=== PATIENT | female | born 1975 | race Caucasian/White ===

== ENCOUNTER → 2024-03-09 13:24 | Outpatient (REF) | payer OTHER, SELFPAY | LOC: WDC 13:24 | PROVIDERS: ATTENDING PHYSICIAN Obstetrics & Gynecology; FAMILY PHYSICIAN Family Medicine | DX: Z12.31 Encounter for screening mammogram for malignant neoplasm of breast (principal) | CPT/HCPCS: 77063; 77067 ==

== ENCOUNTER → 2024-05-07 09:47 | Outpatient (REF) | payer OTHER, SELFPAY | LOC: WDC 09:47 | PROVIDERS: ATTENDING PHYSICIAN Obstetrics & Gynecology; FAMILY PHYSICIAN Family Medicine | DX: R92.2 Inconclusive mammogram (principal) | CPT/HCPCS: 76641 ==

== ENCOUNTER 2024-06-02 09:40 | Emergency (ER) | payer OTHER, SELFPAY ==
[2024-06-02 09:46] VITALS: BP 142/94
[2024-06-02 10:12] LABS: % Basophils 1.3 % (0-2); % Eosinophils 5.2 % (0-6); % Immature Granulocytes 0.2 % (0-0.5); % Lymphocytes 25.3 % (20.5-51.1); % Monocytes 4.6 % (1.7-9.3); % Neutrophils 63.4 % (42.2-75.2); Absolute Basophils 0.1 10^3/uL (0-0.2); Absolute Eosinophils 0.3 10^3/uL (0-0.7); Absolute Lymphocytes 1.2 10^3/uL (1.2-3.4); Absolute Monocytes 0.2 10^3/uL (0.1-0.6); Hematocrit 41.7 % (37.0-47.0); Hemoglobin 14.3 g/dL (12.0-16.0); Mean Corp Hgb Conc. 34.3 g/dL (33.0-37.0); Mean Corpuscular Hgb 30.2 pg (27.0-31.0); Mean Corpuscular Volume 88.2 fL (81.0-99.0); Mean Platelet Volume 9.4 fL (7.4-10.4); Nucleated Red Blood Cells % 0 %; Platelet Count 251 10^3/uL (130-400); Red Blood Cell Count 4.73 10^6/uL (4.20-5.40); Red Cell Dist. Width 12.4 % (11.5-14.5); White Blood Cell Count 4.8 10^3/uL (4.8-10.8)
[2024-06-02 10:24] LABS: ALT (SGPT) 18 U/L (0-35); AST (SGOT) 23 U/L (14-36); Albumin 4.8 g/dl (3.5-5.0); Alkaline Phosphatase 45 U/L (38-126); Blood Urea Nitrogen 15 mg/dl (7-17); Calcium 9.6 mg/dl (8.4-10.2); Carbon Dioxide 29 mmol/L (22-30); Chloride 102 mmol/L (98-107); Glucose 96 mg/dl (70-99); Lipase 144 U/L (23-300); Potassium 4.4 mmol/L (3.5-5.1); Sodium 140 mmol/L (135-145); Total Protein 7.4 g/dl (6.3-8.2); eGFR > 60.00
[2024-06-02 10:36] LABS: Troponin I < 0.012 ng/ml
--- NOTE | 2024-06-02 11:33 | ED.GENMED ---
History of Present Illness
General
Chief Complaint: Abdominal Symptoms
Source: patient
Time Seen by Provider: 06/02/24 11:06
History of Present Illness
History of Present Illness:
48-year-old female with past medical history of GERD and previous kidney stone presenting to the emergency department for evaluation of epigastric abdominal spasms that started yesterday describing the pain to be a short burst of discomfort lasting
for a few seconds and then resolving. Patient noticed that she was also belching a little bit more frequently. Today patient endorsed a frontal headache, no nausea, no vomiting and no visual disturbances. She did not take anything for her
symptoms yesterday or today. No other concerns presently.
Past History
Past History
ED Past Medical History: GERD and Other (Kidney stones)
ED Past Surgical History: and Other
Social History
Tobacco: Non-smoker
Alcohol: Occasional
Drug: None
Personal:
Living: with family
Employment: Employed
Family History
Family History: Other
Review of Systems
Review of Systems
All Other Systems: ROS reviewed and negative except as documented in HPI and ROS
Phy Exam
Physical Exam
Physical Exam:
GENERAL: Alert , in no apparent distress
EYE: clear conjunctiva b/l
HEAD: NCAT
ENT: mmm.
CARDIAC: Regular rate and rhythm .
LUNGS: Clear breath sounds bilaterally, no acute respiratory distress, no wheezes/rales/rhonchi
ABDOMEN: Soft, without focal tenderness, no r/g, no cvat, negative Carpenter sign, no tenderness at McBurney's point
NEUROLOGICAL: Alert and oriented
SKIN: Warm and dry, skin intact.
MUSCULOSKELETAL: well perfused.
PSYCH: Normal and appropriate interaction.
Scores
Heart Failure Risk
Heart Failure Risk Score: Not Applicable
Heart Score for Chest Pain Patients
STEMI patient?: Not applicable
Withdrawal Assessment of Alcohol
Withdrawal Assessment Completed?: Not applicable
Course
Orders/Labs/Results
Orders:
Orders
06/02/24 09:43
Electrocardiogram (*1) Urgent
Reason for Study: Chest Pain
EKG- Treatment ONCE
06/02/24 10:04
Complete Blood Count/With Diff Urgent
Comprehensive Metabolic Panel Urgent
Lipase Urgent
Troponin I Urgent
06/02/24 11:22
Ibuprofen [Motrin] 600 mg PO NOW STA
Mag Hydrox/Al Hydrox/Simeth [Maalox] 30 ml Phenobarb/Hyoscy/Atropine/Scop [] 10 ml Viscous Lidocaine 2% [Xylocaine Viscous Cup] 10 ml PO NOW
06/02/24 11:38
Phenobarb/Hyoscy/Atropine/Scop [] 10 ml .ROUTE .STK-MED ONE
06/02/24 11:39
Mag Hydrox/Al Hydrox/Simeth [Maalox] 30 ml .ROUTE .STK-MED ONE
Viscous Lidocaine 2% [Xylocaine Viscous Cup] 15 ml .ROUTE .STK-MED ONE
06/02/24 10:04
06/02/24 10:04
Vital Signs
Initial and Last Documented VS:
Initial Vital Signs
Temp Pulse Resp BP Pulse Ox
98.1 F 66 16 142/94 100
06/02/24 09:46 06/02/24 09:46 06/02/24 09:46 06/02/24 09:46 06/02/24 09:46
Last Documented Vital Signs
Temp Pulse Resp BP Pulse Ox
98.3 F 54 16 117/76 100
06/02/24 11:45 06/02/24 11:45 06/02/24 11:45 06/02/24 11:45 06/02/24 11:45
MDM/Problems Addressed
Differential Diagnosis Includes:
GERD, gastritis, duodenitis, symptomatic cholelithiasis/cholecystitis, pancreatitis, tension headache, no concern for intracranial bleeding
MDM/Problems Addressed:
48-year-old female presenting to the emergency department for evaluation of intermittent abdominal spasm lasting a few seconds and then resolving. No other GI related symptoms. Secondary concern of a mild frontal headache today. Did not take
anything for symptoms prior to arrival. Abdominal exam reassuring. Labs initiated in triage are all unremarkable. Patient had a nonischemic EKG and negative troponin. Will treat with GI cocktail and Motrin. Reassessment following
Chronic conditions affecting care: Other (GERD)
*Pulse Oximetry
Patient hypoxic: no
*EKG
Interpreted by ED Provider?: Yes
Comparison EKG: no changes
Heart Rate: 57
Rate: bradycardiac
Rhythm: sinus
[place]: normal axis
Ischemia: no ischemia
*Voice Engineer Interpretation
Rate: bradycardiac
Rhythm: sinus
*Critical Care Note
Total Time (30-74mins, 75-104mins- exclusive of procedures): Not Applicable
Patient Management
Escalation/DeEscalation of care consider admission/obs:
Patient reporting significant improvement of symptoms. Feels comfortable being discharged home. She is aware of return precautions to the emergency department and will follow-up with her primary care provider.
ED Attending Note
-
Portions of this chart may have been created with voice recognition software.� Occasional wrong word or��sound alike� substitutions may have occurred due to the inherent limitations of voice recognition software.
Discharge Plan
Departure
Patient Disposition: Home (Routine Discharge)
Date of Disposition: 06/02/24
Time of Disposition: 13:38
Patient with high blood pressure during this ER visit?: Yes
Discharge Problem:
Abdominal pain, Headache
Instructions: Abdominal Pain
Prescriptions:
No Action
dicyclomine 10 MG capsule
10 mg PO QIDPRN PRN (Reason: severe abdominal pain) Qty: 15 0RF
Referrals:
Lit Dash MD [Family Provider] -
Interventions
Interventions:
*Risk Screen - Suicide Last Done: 06/02/24 09:46
*General Assessment Last Done: 06/02/24 09:46
*Neglect/Abuse Screening Last Done: 06/02/24 09:46
ED- Fall Risk Assessment Last Done: 06/02/24 11:49
*ED COVID-19 Vaccine History Last Done: 06/02/24 09:46
VN-Jmhcip-Wutgonyado Assessment Last Done: 06/02/24 09:41
Discharge Date and Time
Print Language: UPPER SORBIAN
[2024-06-02] MEDS: MOTRIN 600 MG PO (11:41)
[2024-06-02] MEDS: MAALOX 50 PO (11:42)
[2024-06-02 11:45] VITALS: BP 117/76
[2024-06-02 11:48] VITALS: BMI 21.6
[2024-06-02 13:50] VITALS: BP 129/64
== END 2024-06-02 13:50 | disposition home or self-care (01) ==
LOC: EMR 09:40
PROVIDERS: Emergency Medicine; EMERGENCY PHYSICIAN Emergency Medicine; FAMILY PHYSICIAN Family Medicine
DX: R51.9 Headache, unspecified (principal); R10.13 Epigastric pain; M62.838 Other muscle spasm; R03.0 Elevated blood-pressure reading, without diagnosis of hypertension; K21.9 Gastro-esophageal reflux disease without esophagitis; Z87.442 Personal history of urinary calculi; Z88.5 Allergy status to narcotic agent
CPT/HCPCS: 99283; 80053; 83690; 84484; 85025; 93005

== ENCOUNTER 2024-06-28 09:13 | Emergency (ER) | payer OTHER, SELFPAY ==
[2024-06-28] VITALS (7 sets, daily range): BP systolic 90–127; BP diastolic 53–79; BMI 20.6
[2024-06-28] MEDS: TORADOL 15 MG IV (10:15)
[2024-06-28] MEDS: OMNIPAQUE 50 ML PO (10:15)
[2024-06-28 10:18] LABS: % Basophils 0.6 % (0-2); % Eosinophils 1.8 % (0-6); % Immature Granulocytes 0.3 % (0-0.5); % Lymphocytes 11.4 % (20.5-51.1); % Monocytes 6.3 % (1.7-9.3); % Neutrophils 79.6 % (42.2-75.2); Absolute Basophils 0.1 10^3/uL (0-0.2); Absolute Eosinophils 0.2 10^3/uL (0-0.7); Absolute Lymphocytes 1.2 10^3/uL (1.2-3.4); Absolute Monocytes 0.6 10^3/uL (0.1-0.6); Hematocrit 42.1 % (37.0-47.0); Hemoglobin 14.4 g/dL (12.0-16.0); Mean Corp Hgb Conc. 34.2 g/dL (33.0-37.0); Mean Corpuscular Hgb 30.4 pg (27.0-31.0); Mean Platelet Volume 9.6 fL (7.4-10.4); Nucleated Red Blood Cells % 0 %; Platelet Count 262 10^3/uL (130-400); Red Blood Cell Count 4.73 10^6/uL (4.20-5.40); Red Cell Dist. Width 12.1 % (11.5-14.5); White Blood Cell Count 10.1 10^3/uL (4.8-10.8)
[2024-06-28 10:22] LABS: Urine Albumin Negative (Neg - Trace); Urine Bilirubin Negative (Negative); Urine Character Clear (Clear); Urine Color Yellow; Urine Glucose Negative (Negative); Urine Ketone Negative (Negative); Urine Leukocyte Negative (Negative); Urine Nitrite Negative (Negative); Urine Occult Blood Negative (Negative); Urine Urobilinogen Negative (Neg - 1+)
[2024-06-28 10:26] LABS: HCG, Serum Qualitative Screen Negative
[2024-06-28 10:29] LABS: ALT (SGPT) 15 U/L (0-35); AST (SGOT) 21 U/L (14-36); Albumin 4.9 g/dl (3.5-5.0); Alkaline Phosphatase 52 U/L (38-126); Blood Urea Nitrogen 12 mg/dl (7-17); Calcium 9.6 mg/dl (8.4-10.2); Carbon Dioxide 30 mmol/L (22-30); Chloride 100 mmol/L (98-107); Estimated Creatinine Clearance 87 ml/min; Glucose 93 mg/dl (70-99); Sodium 141 mmol/L (135-145); Total Bilirubin 0.8 mg/dl (0.2-1.3); Total Protein 7.7 g/dl (6.3-8.2); eGFR > 60.00
--- NOTE | 2024-06-28 10:29 | ED.GENMED ---
History of Present Illness
General
Chief Complaint: Abdominal Symptoms
Source: patient
Exam Limitations: none
Time Seen by Provider: 06/28/24 09:44
History of Present Illness
History of Present Illness:
48-year-old female presents with right lower quad abdominal pain. She states she first noticed it yesterday. Pain is in the right lower quadrant radiates down toward her pelvis a little bit towards her back. The patient does have a history of
kidney stones and states she is not really sure if this is the same. She does feel little bit of pressure in that area when she urinates. No fevers. No vomiting. No diarrhea. No melena. She is perimenopausal.
Past History
Past History
ED Past Medical History: GERD and Other (Kidney stones)
ED Past Surgical History: and Other
Social History
Tobacco: Non-smoker
Alcohol: Occasional
Drug: None
Personal:
Living: with family
Employment: Employed
Family History
Family History: Other
Phy Exam
Physical Exam
Physical Exam:
CONSTITUTIONAL Patient alert and oriented to person, place and time. Well-appearing. Vital signs reviewed.
HEAD atraumatic, normocephalic.
EYES eyelids normal to inspection, Extraocular muscles intact, Conjunctiva normal, Sclera normal.
NECK normal range of motion, Trachea midline, no jugular venous distention.
RESPIRATORY CHEST No respiratory distress noted, Chest expansion equal, Bilateral breath sounds clear.
CARDIOVASCULAR regular rate and rhythm, Heart sounds normal.
ABDOMEN moderate McBurney's point tenderness, moderate right lower quadrant and right pelvic tenderness, Bowel sounds normal. No distention.
BACK normal inspection, no obvious deformities
UPPER EXTREMITY range of motion normal, Motor strength normal, no cyanosis, no edema.
LOWER EXTREMITY range of motion normal, Motor strength normal, no cyanosis, no edema.
NEURO Speech normal, No focal motor deficits, Brodie coma scale 15, Memory normal, Cranial Nerves intact to screening exam.
SKIN skin warm, dry, and normal in color.
Course
Orders/Labs/Results
Orders:
Orders
06/28/24 09:44
Test Result ONCE
06/28/24 09:57
Complete Blood Count/With Diff Urgent
Comprehensive Metabolic Panel Urgent
HCG, Serum Qualitative Screen Urgent
Urinalysis Reflex To Culture Urgent
Date Specimen was Collected: 06/28/24
Time Specimen was Collected: 09:49
06/28/24 10:03
CT Abd/pel W Iv And Oral Contr Urgent
Comment:
Reason For Exam: RLQ abd pain
Iohexol [Omnipaque] See Protocol PO NOW STA
06/28/24 10:06
Ketorolac [Toradol] 15 mg .ROUTE .STK-MED ONE
Ketorolac [Toradol] 15 mg IV NOW STA
06/28/24 13:00
Amoxicillin 875 mg/Clav 125 mg [Augmentin 875 mg/125 mg] 1 tablet PO NOW STA
Abnormal Lab Results
06/28/24
09:57
Absolute Neuts (auto) 8.0 H 10^3/uL
(1.4-6.5)
Neutrophils % 79.6 H %
(42.2-75.2)
Lymphocytes % 11.4 L %
(20.5-51.1)
06/28/24 09:57
06/28/24 09:57
Vital Signs
Initial and Last Documented VS:
Initial Vital Signs
Temp Pulse Resp BP Pulse Ox
98.9 F 77 18 127/79 98
06/28/24 09:18 06/28/24 09:18 06/28/24 09:18 06/28/24 09:18 06/28/24 09:18
Last Documented Vital Signs
Temp Pulse Resp BP Pulse Ox
98.9 F 77 18 90/64 98
06/28/24 09:18 06/28/24 09:18 06/28/24 09:18 06/28/24 12:14 06/28/24 12:15
MDM/Problems Addressed
MDM/Problems Addressed:
Abdominal pain, diverticulitis
*Radiology
Radiology exam reviewed: radiology read reviewed
*Pulse Oximetry
Patient hypoxic: no
*Critical Care Note
Total Time (30-74mins, 75-104mins- exclusive of procedures): Not Applicable
Data Reviewed
Source: patient
Prescriptions/Medications Considered But Not Given:
Consider Levaquin and Flagyl prefer Augmentin for now
Patient Management
Escalation/DeEscalation of care consider admission/obs:
CT shows suspected diverticulitis. Cover with antibiotics. Okay for outpatient management.
ED Attending Note
-
Portions of this chart may have been created with voice recognition software.� Occasional wrong word or��sound alike� substitutions may have occurred due to the inherent limitations of voice recognition software.
Discharge Plan
Departure
Patient Disposition: Home (Routine Discharge)
Date of Disposition: 06/28/24
Time of Disposition: 13:21
Patient with high blood pressure during this ER visit?: No
Discharge Problem:
Acute diverticulitis
Instructions: Diverticulitis (DC)
Prescriptions:
New
amoxicillin-pot clavulanate 875-125 mg tablet
1 tab PO BID Qty: 20 0RF
No Action
dicyclomine 10 MG capsule
10 mg PO QIDPRN PRN (Reason: severe abdominal pain) Qty: 15 0RF
Referrals:
Lit Dash MD [Family Provider] -
Activity Restrictions/Additional Instructions:
Please stick to a low residue diet. Please see your GI doctor or primary care doctor for follow-up in the next 2 weeks. Return immediately for fevers, worsening pain, vomiting or any other concerns.
Interventions
Interventions:
*Risk Screen - Suicide Last Done: 06/28/24 09:18
*General Assessment Last Done: 06/28/24 09:18
*Neglect/Abuse Screening Last Done: 06/28/24 09:18
ED- Fall Risk Assessment Last Done: 06/28/24 09:47
*ED COVID-19 Vaccine History Last Done: 06/28/24 09:47
FU-Pkpmtq-Righgzlstv Assessment Last Done: 06/28/24 09:47
Discharge Date and Time
Print Language: AUSTRIAN
[2024-06-28] MEDS: AUGMENTIN 875 MG/125 MG 1 TABLET PO (13:48)
== END 2024-06-28 13:59 | disposition home or self-care (01) ==
LOC: EMR 09:13
PROVIDERS: EMERGENCY PHYSICIAN Emergency Medicine; FAMILY PHYSICIAN Family Medicine
DX: R10.31 Right lower quadrant pain (principal); K57.32 Diverticulitis of large intestine without perforation or abscess without bleeding; Z87.442 Personal history of urinary calculi
CPT/HCPCS: 99285; 96374; 74177; 80053; 81003; 84703; 85025; Q9967

== ENCOUNTER → 2025-05-09 14:50 | Outpatient (REF) | payer OTHER, SELFPAY | LOC: WDC 14:50 | PROVIDERS: ATTENDING PHYSICIAN Obstetrics & Gynecology; FAMILY PHYSICIAN Family Medicine | DX: R92.2 Inconclusive mammogram (principal) | CPT/HCPCS: 76641 ==